=== PATIENT | female | born 1955 | race Caucasian/White ===

== ENCOUNTER 2016-12-22 14:57 | Emergency (ER) | payer MEDICARE, OTHER ==
[~2016-12-22] VITALS: Ht 157.5 cm; Wt 92.5 kg
[2016-12-22 15:19] VITALS: Ht 157.5 cm; Wt 92.5 kg
[2016-12-22] MEDS ORDERED: CLOP75TA27 PO (17:19)
[2016-12-22] MEDS ORDERED: ASPI-664 PO (17:20)
[2016-12-22] MEDS ORDERED: LYR75 PO (17:20)
[2016-12-22] MEDS ORDERED: NOVO3I SC (17:21)
[2016-12-22] MEDS ORDERED: INSU200I4 SQ (17:22)
[2016-12-22] MEDS ORDERED: LISI2.5T59 PO (17:25)
--- NOTE | 2016-12-22 17:38 | RADRPT ---
PROCEDURE: Ultrasound of the left lower extremity venous system. CLINICAL INDICATION: Left leg pain and swelling, deep venous thrombosis TECHNIQUE: Silva scale with and without compression, color doppler, spectral doppler of the venous system of the left lower extremity was performed. Venous augmentation maneuvers were utilized. COMPARISON: No prior studies are available for comparison. FINDINGS: Common femoral vein: Occlusive thrombus Femoral vein: Occlusive thrombus throughout Popliteal vein: Occlusive thrombus Calf veins: Not visualized Superficial thrombosis of the greater saphenous vein also present. IMPRESSION: Occlusive deep venous thrombosis throughout the left lower extremity. Results were discussed with Brien Grossman by telephone 12/22/2016 5:36:[address] Ashkan olivo RPTAT: AADD .Ashkan Bowman MD, Date Time Electronically viewed and signed by .Ashkan Bowman MD, on 12/22/2016 17:38 .B/
[2016-12-22] MEDS ORDERED: LEVO50TA74 PO (17:51)
[2016-12-22] MEDS ORDERED: GLIM2TAB PO (17:52)
[2016-12-22] MEDS ORDERED: RANI300T PO (17:52)
[2016-12-22] MEDS ORDERED: DULA0.75 SQ (17:53)
[2016-12-22] MEDS ORDERED: LINA5TAB PO (17:53)
[2016-12-22] MEDS ORDERED: ONDANSETRON (ODT) 4 MG TAB ODT STA (19:28)
[2016-12-22] MEDS ORDERED: morphine 10 MG INJ IM ONE (19:30)
[2016-12-22] MEDS ORDERED: ASPIRIN 325 MG TAB PO STA (19:35)
[2016-12-22] MEDS ORDERED: SOD CHLORIDE 0.9% 500 ML IV STA (19:35)
--- NOTE | 2017-01-01 20:18 | ERD ---
ER Documentation Chief Complaint Date/Time DATE: 01/01/17 TIME: 20:09 Chief Complaint Complains of left leg swelling and pain that radiates to hip with weakness HPI This 61 yo female presents to the ER with progressive swelling and some pain of her left leg x several weeks, now reaching the level of her mid thigh. Denies SOB, chest pain, trauma. ROS All systems reviewed and are negative except as per history of present illness. Medications Home Meds Reported Medications Dulaglutide (Trulicity) 0.75 Mg/0.5 Ml Pen.injctr, 0.75 MG SQ Q7D 12/22/16 Linagliptin (TRADJENTA) 5 Mg Tablet, 5 MG PO DAILY, TAB 12/22/16 Glimepiride* (Glimepiride*) 2 Mg Tablet, 2 MG PO WITH BREAKFAST DINNE, TAB 12/22/16 Ranitidine Hcl* (Ranitidine Hcl*) 300 Mg Tablet, 300 MG PO DAILY, #30 TAB 12/22/16 Levothyroxine Sodium* (Levothyroxine Sodium*) 50 Mcg Tablet, 50 MCG PO BEFORE BREAKFAST, #30 TAB 12/22/16 Lisinopril* (Lisinopril*) 2.5 Mg Tablet, 2.5 MG PO DAILY, #30 TAB 12/22/16 Insulin Degludec (Tresiba Flextouch U-200) 200 Unit/1 Ml Insuln.pen, 30 UNIT SQ QAM 12/22/16 Insulin Aspart* (Novolog Insulin Pen*) 100 Unit/Ml Soln, 20 UNIT SC WITH LUNCH DINNER, EA 12/22/16 Pregabalin* (Lyrica*) 75 Mg Capsule, 75 MG PO TID, CAP 12/22/16 Aspirin* (Aspirin* EC) 81 Mg Tablet.dr, 81 MG PO DAILY, TAB 12/22/16 Clopidogrel Bisulfate (Clopidogrel) 75 Mg Tablet, 75 MG PO DAILY, #30 TAB 12/22/16 Allergies Allergies: Coded Allergies: No Known Allergy (Unverified , 12/22/16) PMhx/Soc History of Surgery: Yes (Appendectomy) Anesthesia Reaction: No Hx Neurological Disorder: No Hx Respiratory Disorders: No Hx Cardiac Disorders: Yes (LA) Hx Miscellaneous Medical Probl: Yes (DM) Hx Alcohol Use: No Hx Substance Use: No Hx Tobacco Use: No Smoking Status: Never smoker Physical Exam Physical Exam Const: [] No distress Head: Atraumatic Eyes: Normal Conjunctiva ENT: Normal External Ears, Nose and Mouth. Resp: Clear to auscultation bilaterally Cardio: Regular rate and rhythm, no murmurs Skin: No petechiae or rashes Ext: No cyanosis, left leg with pretibial 1+ pitting edema as well as mild edema of the lower thigh. Distal pulses intact and normal. No erythema or calor. Neur: Awake and alert Psych: Normal Mood and Affect Results 24 hrs Current Medications Medications (Trade) Dose Ordered Sig/Bridget Route PRN Reason Start Time Stop Time Status Last Admin Dose Admin Morphine Sulfate (morphine) 6 mg ONCE ONCE IM 12/22/16 19:30 12/22/16 19:31 DC 12/22/16 19:35 Ondansetron HCl 4 mg 4 mg ONCE STAT ODT 12/22/16 19:28 12/22/16 19:31 DC 12/22/16 19:35 Sodium Chloride (NS) 500 ml @ 500 mls/hr Q1H STAT IV 12/22/16 19:35 12/22/16 20:34 DC Aspirin (Aspirin) 325 mg ONCE STAT PO 12/22/16 19:35 12/22/16 19:38 DC Procedures/MDM Extensive lower extremity DVT. Patent given morphine for pain. Patient is very pleasant. However her daughter, who arrived is very anxious, insulting to nursing staff and, unfortunately, want to take the patient to another hospital for unclear reasons. Rao, who is alert and oriented, agrees to do with what her daughter wants. I recommended admission for vascular consult and initiation of anticoagulation. Chooses to leave AMA. L lower extremity DVT: Extensive DVT of almost entire deep venous system of left leg. Departure Diagnosis: Primary Impression: Left leg DVT Condition: Stable MAX GONSALEZ DO Jan 01, 2017 20:17
== END 2016-12-22 20:36 | disposition left against medical advice (07) ==
LOC: E/R 14:57
DX: I82.402 Acute embolism and thrombosis of unspecified deep veins of left lower extremity (principal); E11.9 Type 2 diabetes mellitus without complications; Z79.4 Long term (current) use of insulin; Z79.82 Long term (current) use of aspirin
CPT/HCPCS: 93971; 96372; 99285; J2270; J7040